=== PATIENT | female | born 1975 | race Caucasian/White ===

== ENCOUNTER 2022-09-01 12:21 | Outpatient (CLI) | payer BC, SELFPAY | END 2022-09-01 12:22 | disposition home or self-care (01) | LOC: ANHSURGERY 12:26 | PROVIDERS: PCP Pediatrics; Visit Provider Urology | DX: N81.4 Uterovaginal prolapse, unspecified (principal); Z01.818 Encounter for other preprocedural examination | CPT/HCPCS: 36415; 86850; 86900; 86901 ==

== ENCOUNTER 2022-09-04 03:41 | Day surgery (SDC) | payer BC, SELFPAY ==
[2022-08-25 09:23] VITALS: BMI 43.2
--- NOTE | 2022-08-25 09:28 | PC.NURSE ---
Report to the Outpatient Waiting Room, entrance under the green pavilion located off [facility], at time 9:00 on date 09/04/22. Planned Procedure Time: 11:00. Time changes happen often and if your time is changed the preop area will call you the afternoon before. - You and your visitor will be asked to self-screen and do not enter if you have any COVID symptoms. - A mask is optional within the hospital at this time. Patients may have clear liquids (water, carbonated beverages, clear teas, apple juice) until 3 hours prior to surgery (8:00) with a maximum of 20 ounces. - No food from midnight until time of surgery Take the following medications with a SIP of water the morning of surgery: N/A DO NOT STOP ANY OF YOUR OTHER PRESCRIPTION MEDICATIONS PRIOR TO SURGERY ?EXCEPT THE FOLLOWING Medications to discontinue per physician: N/A Date to take last dose: N/A Please no make-up, nail azerbaijani, hairspray, perfume, deodorant, or body powder the day of surgery. No jewelry (including any body piercings) or valuables the day of surgery, leave them at home. Please take a shower or bath the night before, or the morning of, surgery with an antibacterial soap. Wear comfortable, loose fitting clothing. - Jewelry must be removed prior to entering the operating room. Rings and piercings that are not removed may be cut off. - The hospital will not accept responsibility for valuables. - Please leave all valuables, including medications, at home the day of surgery. If you are going home after surgery, a licensed motor pool driver must drive you home. - NO public transportation without another adult if you receive anesthesia. - We recommend that an adult stay with you for 24 hours following discharge. - We also recommend that you do not drive, make important decision, drink alcoholic beverages, or take any drugs that were not prescribed by your health care provider for at least 24 hours after your discharge time. Follow any additional instructions given to you from your surgeon. If you or anyone in your household have experienced Covid symptoms in the past week, please notify your surgeon or the nurse liaison at the phone number below for possible testing. Telephone instructions given to PT - KAN TOLBERT and asked if any additional questions and then verbalized understanding. Patient advised to call surgeon office or pre surgery nurse liaison [phone] if any additional questions.
--- NOTE | 2022-09-01 09:15 | P.HP_ITS ---
H&P: HPI History of Present Illness Date/Time: 09/01/22 09:15 Chief Complaint: Pelvic organ prolapse and stress incontinence Narrative: She is undergoing hysterectomy for dysfunctional uterine bleeding. She would like her have her stress incontinence and pelvic organ prolapse addressed concomitantly Review of Systems Review of Systems: All systems reviewed & are unremarkable except as noted in HPI and below [facility] Social History Social History Smoking status: Never smoker Alcohol intake: never Substance use: never Substance use type: does not use Living arrangements: with family Spiritual care concerns: No Meds Home Medications and Allergies Home Medications Medication Instructions Recorded Confirmed Type No Home Medications 08/25/22 08/25/22 History Allergies Allergy/AdvReac Type Severity Reaction Status Date / Time codeine AdvReac Unknown Nausea and Unverified 08/25/22 09:22 Vomiting Exam Narrative: No acute distress Normal breathing Alert orient x3 Rectocele to the introitus Cystocele to hymenal ring Urethral hypermobility Assessment and Plan Assessment and plan (1) Rectocele: Code(s): N81.6 - Rectocele Status: Acute Assessment and Plan: Vaginal repair of her rectocele. Possible cystocele repair if more than I appreciated on office exam. She has good apical support. She understands risks of bleeding, infection, damage to the bowel or surrounding organs, dyspareunia, recurrence of prolapse. (2) ANA LAURA (stress urinary incontinence, female): Code(s): N39.3 - Stress incontinence (female) (male) Status: Acute Assessment and Plan: Mid urethral sling. Understands risks of bleeding, infection, damage surrounding organs, damage to the urinary tract, vaginal mesh extrusion, urinary tract mesh erosion, obstructive voiding requiring a secondary procedure, hip and leg pain, dyspareunia, need for ancillary procedures. She agrees to proceed
[2022-09-04] VITALS (11 sets, daily range): BP systolic 124–174; BP diastolic 69–103; PULSE 65–92; RESP 14–20; TEMP 36.7–37; O2SAT 97–100
--- NOTE | 2022-09-04 07:15 | WPDHPUPDATE1 ---
History and Physical Update Update Date/Time: 09/04/22 07:15 History and Physical has been reviewed, including an updated exam of the patient. There are NO changes in the patient's condition. Risks, benefits, and alternatives have been discussed and questions answered. Patient agrees to proceed with procedure.
[2022-09-04] MEDS: ACETAMINOPHEN 500 MG TABLET 1000 MG PO (10:10)
[2022-09-04] MEDS: LACTATED RINGERS 1,000 ML 30 ML IV CONT ×2 (10:16→15:08)
[2022-09-04] MEDS: KETOROLAC 15 MG/ML VIAL (*BKC) IV PUSH (10:17)
--- NOTE | 2022-09-04 10:38 | P.PNAN_ITS ---
Anes - Initial Pre Proc Eval Procedure: Operation Date: 09/04/22 11:45 Proposed Procedures p Cystocele Repair, Rectocele Repair, - Wagner Salomon MD s Urethral Sling, - Wagner Salomon MD s Robotic Assisted Hysterectomy with Bilateral Salpingectomy - Leydi Mccormack MD Date/Time: 09/04/22 10:38 Surgeon: Wagner Salomon MD Pre Op Diagnosis: rectocele, cystocele, stress incont, prolapse Patient Data Age: 46 Gender: F Height: 1.65 m Weight: 113 kg Last Vital Signs Temp 36.7 C 09/04/22 10:34 Pulse 87 09/04/22 10:34 Resp 16 09/04/22 10:34 BP 174/103 H 09/04/22 10:34 Pulse Ox 100 09/04/22 10:34 O2 Del Method Room Air 09/04/22 10:34 Allergies Allergy/AdvReac Type Severity Reaction Status Date / Time codeine AdvReac Unknown Nausea and Unverified 09/04/22 10:23 Vomiting Home Medications Medication Instructions Recorded Confirmed Type No Home Medications 08/25/22 09/04/22 History Patient hx anesthesia problems: none Family hx anesthesia problems: none Results Review: All pre-operative results and documents have been reviewed as part of the pre- operative evaluation. [facility] Social History Social History Smoking status: Never smoker Alcohol intake: never Substance use: never Substance use type: does not use Living arrangements: with family Spiritual care concerns: No Anes - Eval Final PreProcedure Day of Procedure 09/04/22 10:38 Patient weight: morbidly obese Heart: regular rate and rhythm Lungs: clear to auscultation Airway: Mallampati scale class II Neurological: alert and oriented Last oral intake: >/= 8 hours ASA classification: III Emergent: no Anesthetic plan: proceed Anesthesia type and monitoring: general ETT and standard monitoring Results Review: All pre-operative results and documents have been reviewed as part of the pre- operative evaluation. Informed Consent: The patient's anesthetic plan and its attendant risks and benefits were discussed with the patient/family/POA. Questions were solicited and answers provided to the satisfaction of the patient/family/POA.
--- NOTE | 2022-09-04 11:52 | WPDHPUPDATE1 ---
History and Physical Update Update Date/Time: 09/04/22 11:52 History and Physical has been reviewed, including an updated exam of the patient. There are NO changes in the patient's condition. Risks, benefits, and alternatives have been discussed and questions answered. Patient agrees to proceed with procedure.
[2022-09-04] MEDS: ceFAZolin 2 GM/D5W 50 ML 2 GM/50 ML BAG IVPB (12:04)
[2022-09-04] MEDS: BUPIVACAINE/EPINEPHRINE 0.5% 10 ML VIAL 30 ML INFILTRATE (12:32)
--- NOTE | 2022-09-04 14:17 | W.PM.PROC2 ---
Procedure Note - Detailed Date of Procedure 09/04/22 Pre-op Diagnosis rectocele, cystocele, stress incont, prolapse Post-op Diagnosis Same Procedure Performed Total laparoscopic hysterectomy., bilateral salpingectomy Surgeon Leydi Mccormack MD Anesthesia General Indications heavy vaginal bleeding Findings Mildly enlarged uterus, normal-appearing tubes and ovaries Description of Procedure This patient was taken to the operating room. She was prepped and draped in the dorsal lithotomy position after induction of general anesthesia. The uterine manipulator and Arleen cup were placed. This was done with a speculum and tenaculum. The speculum was placed. The cervix was grasped with a tenaculum. The stay sutures were placed at 3 and 9:00 a.m.. The stay sutures of 0 Vicryl were brought through the appropriately sized Arleen cup. The tip of the ANN manipulator was placed in the intrauterine cavity. The cup was slid into place around the cervix and into the fornices. It was locked into place. The sutures were then wrapped around the handle and tied under tension. A 5 mm skin incision was made in the left upper quadrant the abdomen. A 5 mm trocar was inserted into the intrauterine cavity under direct visualization of the scope. Pneumoperitoneum was achieved. A left lower quadrant 11 mm incision was made with scalpel. An 11 mm trocar was inserted into the anterior abdominal cavity under direct visualization the scope. A 5 mm infraumbilical incision was made with a scalpel and a 5 mm trocar was inserted the intra-abdominal cavity under direct visualization of the scope. Bilateral ureteral lysis was performed. This was done from the pelvic brim down to the uterine artery. This was done with careful dissection using sharp and blunt dissection. The fallopian tubes were removed bilaterally. The mesosalpinx around the fallopian tubes were cauterized transected with LigaSure cautery. This was done in a bilateral fashion from the ovary to the uterine cornua. The fallopian tube was transected at the uterine cornu and amputated. The tube was taken out the left lower quadrant trocar site. In a stepwise fashion along the lateral aspects of the uterus the round ligament and broad ligaments were cauterized transected down to the level of the uterine arteries. A bladder flap was created in the bladder was moved distally to the end of the cervix and over the Arleen cup. The bilateral uterine arteries were cauterized and transected. Colpotomy was then performed. In a circumferential fashion the vagina was transected using unipolar cautery. The incision was made down on the Arleen cup. The uterus and cervix were taken out through the vagina. A pneumo occluder was placed in the vagina. The vaginal cuff was closed with a 0 V lock suture in a running fashion. The pelvis was irrigated with copious amounts antibiotic irrigation. The ureters were again examined and found to be intact and flowing freely under the uterine arteries into the bladder. The bladder was intact. It was examined directly. The vagina was irrigated with Betadine solution after removal of the Pneumo occluder. The patient was taken to recovery room. She was stable condition. Sponge lap and needle counts were correct x2. Drains Yes Packing No Pathology Yes Complications No immediate complications Condition Stable Disposition Floor
--- NOTE | 2022-09-04 15:18 | W.PM.PROC2 ---
Procedure Note - Detailed Date of Procedure 09/04/22 Pre-op Diagnosis rectocele, stress incontinence Post-op Diagnosis Same Procedure Performed Rectocele repair Mid urethral sling/transobturator sling Cystoscopy Surgeon Wagner Salomon MD Anesthesia General Indications This is a with urodynamics confirmed stress incontinence she would like it corrected. She understands the risks of urethral sling. We discussed the risks of bleeding, infection, damage to the urinary tract, damage surrounding organs, vaginal mesh extrusion, urinary tract mesh erosion, obstructive voiding requiring secondary procedure, hip and leg pain, recurrent or persistent stress incontinence. She agrees to proceed. She would also like a common a prolapse repair. She has a rectocele on exam. She understands risks of bleeding, infection, damage to the rectum, fistula formation, recurrence of rectocele, dyspareunia. She agrees to proceed Description of Procedure She underwent robotic assisted hysterectomy by her four slide machine setter. I then entered the room. Time-out was reperformed. She was re-prepped in a standard fashion. I placed a Challenge retractor. She had a small rectocele just beyond the hymenal ring but not quite to the introitus. I grasped the rectocele with Allis clamps. Made a midline vaginal incision after infiltrating the subcutaneous tissues with local mixed with epinephrine. I dissected out laterally taking great care not to injure the rectum or the vaginal wall. I dissected out towards the apex as well. I then performed a plication type rectocele repair. I used interrupted 0 Vicryl sutures. Of note she had poor quality tissue in this area. Surgeries also made more difficult by her body habitus. I trimmed minimal excess vaginal mucosa. I closed the vaginal mucosa with a running 2-0 Vicryl suture. There was excellent reduction of the rectocele. She did not have significant cystocele which would require a a cystocele repair. I removed the Challenge retractor. I assured hemostasis. I placed some additional sutures were the Challenge hooks were to close the mucosa due to a slight amount of bleeding. I then anesthetized the anterior vaginal wall over the mid urethra. I anesthetized the inner thighs over the cover machine operator foramen. I made the incisions in this area. I then made a midline vaginal incision underneath the mid urethra. I dissected out laterally taking great care not to injure the urethra the vaginal wall. I passed the helical trocars 1st the left and then on the right from the thigh incision towards the vaginal incision. Sling was connected to trocars and brought out through the thigh incision. Again the surgery was made more difficult with her body habitus. I tensioned the sling appropriately. I cut and the plastic sheaths. I then closed incision with 2-0 Vicryl. On cystoscopy she had no tumors, stones, trabeculations, abnormal red patches, foreign bodies. Ureteral orifices were normal. They were both seen to excrete clear yellow urine. No surgical artifact in the bladder urethra. I cut the excess sling material. I closed the thigh incisions with glue. I replaced Cross catheter. I placed vaginal packing to be removed tomorrow. She was awakened transferred to PACU in stable condition. Estimated Blood Loss -175.0
[2022-09-04] MEDS: fentaNYL CITRATE INJ (*CRX) 100 MCG/2 ML VIAL 25 MCG IV PUSH ×8 (15:31→15:55)
[2022-09-04] MEDS: KETOROLAC 30 MG/ML VIAL (*BKC) IV PUSH ×2 (16:53→21:28)
[2022-09-04] MEDS: DEXTROSE 5%/0.45% SOD CHL 1,000 ML 125 ML IV CONT (16:53)
[2022-09-05 02:55] VITALS: BP 149/82; PULSE 99; RESP 22; TEMP 37.3; O2SAT 96
[2022-09-05] MEDS: KETOROLAC 30 MG/ML VIAL (*BKC) IV PUSH (05:10)
[2022-09-05 05:16] VITALS: BP 120/66; PULSE 75; RESP 18; TEMP 36.8; O2SAT 96
[2022-09-05 08:35] VITALS: BP 143/77; PULSE 77; RESP 18; TEMP 37.2; O2SAT 99
--- NOTE | 2022-09-05 08:54 | PM.GYNPNOP ---
WET END SUPERVISOR - A/P Postoperative Procedures: Procedures Operation Date: 09/04/22 11:45 Actual Procedure Side Surgeon s Cystocele Repair, Rectocele Repair, Not Applicable Wagner Salomon MD s Urethral Sling Not Applicable Wagner Salomon MD p Robotic Assisted Hysterectomy with Bilateral Salpingectomy Bilateral Leydi Mccormack MD Postoperative day: 1 Postoperative status: doing well Postoperative plan: see orders Time Spent With Patient Time: Total time spent is greater than 50% in coordination of care (as documented) at patient's floor/unit and/or counseling patient: Time with patient: less than 15 minutes WET END SUPERVISOR- PN:Subj Post-Op Subjective Date/time seen: 09/05/22 08:54 Subjective: patient reports feeling better, patient has no complaints and pain is well controlled Exam Const: General: healthy appearing, comfortable and no acute distress Resp: Auscultation: clear to auscultation bilaterally, no rales, no rhonchi and no wheezes Cardio: Rate: regular rate Heart sounds: no click, no murmurs and no rubs GI: Inspection: non-distended Auscultation: normal bowel sounds Extrem: General: normal to inspection, no pedal edema and no calf tenderness WET END SUPERVISOR - PN: Obj Data Vital Signs Vital Signs: Vital Signs - 24 hr 09/04/22 10:34 09/04/22 10:27 09/04/22 15:08 Temperature 98.0 F 98.0 F Pulse Rate 87 92 Respiratory Rate 16 14 Blood Pressure 174/103 H 148/79 H 127/90 Pulse Oximetry 100 100 Oxygen Delivery Room Air Simple Face Mask Oxygen Flow Rate 8 09/04/22 15:20 09/04/22 15:34 09/04/22 15:40 Temperature Pulse Rate 70 86 85 Respiratory Rate 16 20 16 Blood Pressure 139/78 129/90 146/87 H Pulse Oximetry 100 100 99 Oxygen Delivery Simple Face Mask Simple Face Mask Room Air Oxygen Flow Rate 8 8 09/04/22 15:50 09/04/22 16:05 09/04/22 16:12 Temperature 98.1 F Pulse Rate 79 65 69 Respiratory Rate 14 16 16 Blood Pressure 137/81 132/80 128/75 Pulse Oximetry 97 98 98 Oxygen Delivery Room Air Room Air Nasal Cannula Oxygen Flow Rate 2 09/04/22 16:30 09/04/22 16:30 09/04/22 21:41 Temperature 98.4 F 98.6 F Pulse Rate 70 70 77 Respiratory Rate 18 16 18 Blood Pressure 128/74 124/69 Pulse Oximetry 98 98 98 Oxygen Delivery Nasal Cannula Oxygen Flow Rate 2 09/05/22 02:55 09/05/22 05:16 Temperature 99.1 F 98.2 F Pulse Rate 99 75 Respiratory Rate 22 H 18 Blood Pressure 149/82 H 120/66 Pulse Oximetry 96 96 Oxygen Delivery Oxygen Flow Rate Intake/Output Intake/Output: Intake & Output 09/02/22 09/03/22 09/04/22 09/05/22 23:59 23:59 23:59 23:59 Intake Total 520 1600 Output Total 490 1725 Balance 30 -125 Meds/Results Medications: Active Medications Generic Name Dose Route Start Last Admin Trade Name Freq PRN Reason Stop Dose Admin Hydrocodone Bitart/Acetaminophen 1 tab 09/04/22 16:16 Hydrocodone/Acetaminophen (*Crx) 10-325 Mg Tablet PO Q3H PRN Pain Rated 6 or Greater Hydrocodone Bitart/Acetaminophen 1 tab 09/04/22 16:16 Hydrocodone/Acetaminophen (*Crx) 5-325 Mg Tablet PO Q3H PRN Pain Rated 5 or Less Dextrose/Sodium Chloride 1,000 mls @ 125 mls/hr 09/04/22 16:16 09/05/22 03:10 Dextrose 5% Sodium Chloride 0.45% IV CONT Infused .Q8H JACEK Infusion Ibuprofen 600 mg 09/04/22 16:16 Ibuprofen 600 Mg Tablet PO Q6H PRN Cramping Ketorolac Tromethamine 30 mg 09/04/22 16:16 09/05/22 05:10 Ketorolac 30 Mg/Ml Vial (*Bkc) IV PUSH 09/09/22 16:15 30 mg Q6H PRN Administration Pain Rated 4-6 Naloxone HCl 0.1 mg 09/04/22 16:16 Naloxone Hcl 0.4 Mg/Ml Vial IV PUSH Q2M PRN Respiratory rate less than 10 Ondansetron HCl 4 mg 09/04/22 16:16 Ondansetron Inj 4 Mg/2 Ml Vial IV PUSH Q6H PRN Nausea And Vomiting
== END 2022-09-05 10:45 | disposition home or self-care (01) ==
LOC: ANHSURGERY 09:42 → ANHOB2 16:18
PROVIDERS: Obstetrics & Gynecology; PCP Pediatrics; Visit Provider Urology
PROC: (CPT 57240; principal; 2022-09-04 11:45)
PROC: (CPT 45560; 2022-09-04 11:45)
PROC: (CPT 58571; 2022-09-04 11:45)
DX: N81.6 Rectocele (principal); N39.3 Stress incontinence (female) (male); N81.9 Female genital prolapse, unspecified; N92.0 Excessive and frequent menstruation with regular cycle; E66.01 Morbid (severe) obesity due to excess calories; Z68.41 Body mass index [BMI] 40.0-44.9, adult
CPT/HCPCS: 45560; 57288; 58571; 88307; 99199; A9270; C1771; J0690; J1100; J1885; J2250; J2371; J2405; J2704; J2710; J3010; J7030; J7120